=== PATIENT | female | born 1995 | race Caucasian/White ===

== ENCOUNTER 2019-11-18 12:11 | Emergency (ER) | payer OTHER ==
[2019-11-18 12:52] LABS: RAPID STREP SCREEN POSITIVE (Negative)
[2019-11-18] MEDS ORDERED: DEXAMETHASONE 10 MG/ML VIAL PO STA (14:07)
[2019-11-18] MEDS ORDERED: CHERRY SYRUP 10 ML UDC PO ONE (14:07)
--- NOTE | 2019-11-18 14:13 | ED Physician Documentation ---
History of Present Illness - Stated complaint Stated Complaint: SORE THROAT, BODY ACHES - Chief complaint Chief Complaint: Heent - History obtained from History obtained from: Patient - History of Present Illness Timing: How many days ago (2) - Additonal information Additional information: 24-year-old female works at the [employer] [place], states sore throat for the past 2 days including subjective fevers. No nausea or vomiting. Worse with swallowing and better with rest. Patient denies any possibility of . She is not breast-feeding. No cough. Minimal congestion. No abdominal pain. Review of Systems Throat: reports: Sore throat Respiratory: denies: Cough GI: denies: Vomiting, Diarrhea : denies: Now EGA Skin: denies: Rash Musculoskeletal: denies: Neck pain, Back pain Neurologic: denies: Headache PD PAST MEDICAL HISTORY - Past Medical History Past Medical History: No - Past Surgical History Past Surgical History: No - Present Medications Home Medications: Ambulatory Orders Medication Instructions Recorded Confirmed Ibuprofen [Motrin] 800 mg PO Q8H PRN #30 tablet 11/18/19 Ondansetron Odt [Zofran] 4 mg TL Q6H PRN #10 tablet 11/18/19 Penicillin V Potassium 500 mg PO Q6HR #40 tablet 11/18/19 - Allergies Allergies/Adverse Reactions: Allergies Allergy/AdvReac Type Severity Reaction Status Date / Time No Known Drug Allergies Allergy Verified 11/18/19 12:22 - Living Situation Living Situation: reports: With family Living Arrangement: reports: At home - Social History Does the pt smoke?: No Does the pt drink ETOH?: No Does the pt have substance abuse?: No PD ED PE NORMAL - Vitals Vital signs reviewed: Yes - General General: Alert and oriented X 3, No acute distress, Well developed/nourished - HEENT HEENT: Ears normal, Moist mucous membranes, Other (Posterior oropharyngeal erythema with tonsillar exudates. Uvula midline. Normal phonation. No trismus.) - Neck Neck: Supple, no meningeal sign, No adenopathy - Cardiac Cardiac: RRR, Strong equal pulses - Respiratory Respiratory: No respiratory distress, Clear bilaterally - Abdomen Abdomen: Soft, Non tender, Non distended - Derm Derm: Warm and dry, No rash - Neuro Neuro: Alert and oriented X 3 - Psych Psych: Normal mood, Normal affect Results - Vitals Vitals: Vital Signs - 24 hr 11/18/19 12:20 Temperature 37 C Heart Rate 122 H Respiratory 18 Rate Blood Pressure 121/78 O2 Saturation 100 Oxygen O2 Source Room air - Labs Labs: Laboratory Tests 11/18/19 12:20 Group A Strep Rapid POSITIVE H PD MEDICAL DECISION MAKING - ED course Complexity details: reviewed results, considered differential, d/w patient ED course: Patient with strep pharyngitis. No evidence of peritonsillar or retropharyngeal abscess. Given dexamethasone here. Will place on antibiotics and pain medication for home. Patient counseled regarding signs and symptoms for which I believe and urgent re-evaluation would be necessary. Patient with good understanding of and agreement to plan and is comfortable going home at this time This document was made in part using voice recognition software. While efforts are made to proofread this document, sound alike and grammatical errors may occur. Departure - Departure Disposition: 01 Home, Self Care Clinical Impression: Strep pharyngitis Condition: Good Instructions: ED Strep Pharyngitis Conf Follow-Up: Jenaro Garay ARNP [Primary Care Provider] - Within 1 week (if not better ) Prescriptions: Penicillin V Potassium 500 mg PO Q6HR #40 tablet Ibuprofen [Motrin] 800 mg PO Q8H PRN #30 tablet PRN Reason: PAIN &/OR FEVER Ondansetron Odt [Zofran] 4 mg TL Q6H PRN #10 tablet PRN Reason: Nausea / Vomiting Comments: Take all antibiotics until gone. Return if you worsen. This should start to improve in the next 24 to 48 hours. Forms: Activity restrictions
[2019-11-18 14:22] VITALS: BP 128/76
== END 2019-11-18 14:20 | disposition home or self-care (01) ==
LOC: ED 12:11
DX: J02.0 Streptococcal pharyngitis (principal)
CPT/HCPCS: 87430; 99283; 99284; A9270

== ENCOUNTER 2020-10-22 14:02 | Outpatient (CLI) | payer OTHER ==
[2020-10-22 14:13] VITALS: BP 122/76
[2020-10-22 15:05] LABS: BILIRUBIN,URINE NEGATIVE (NEGATIVE); GLUCOSE, URINE (UA) NEGATIVE (NEGATIVE); KETONES,URINE (UA) NEGATIVE (NEGATIVE); LEUKOCYTE ESTERASE, URINE NEGATIVE (NEGATIVE); NITRITE,URINE NEGATIVE (NEGATIVE); OCCULT BLOOD,URINE NEGATIVE (NEGATIVE); PROTEIN,URINE NEGATIVE (NEGATIVE); UROBILINOGEN,URINE 0.2 (NORMAL) E.U./dL (NORMAL)
[2020-10-22 15:12] LABS: CLARITY,URINE CLEAR (CLEAR)
[2020-10-22] MEDS ORDERED: NIFEdipine 10 MG CAPSULE PO PRN (17:49)
--- NOTE | 2020-10-22 17:56 | HISTORY & PHYSICAL EXAMINATION ---
Admit History - Visit Reason Visit Reason: Contractions - : 2 Parity: 1 Care: positive: Other Risk/History: positive: Previous Complications This : positive: Other (IUGR in mid -, resolved) - Mother's Labs GBS: positive: Group B Step Negative - Other Maternal History Other Maternal History: Patient is a 25 yo at 36+6 wga by patient report here with contractions. Patient reports that she was having some back pain and abdominal pain yesterday. She was checked by her primary OB at [place], who noted that her cervix was soft but closed and high. She has had no LOF or VB. Endorses FM. She has been having more uterine irritability and contractions throughout the day. She presented to triage for assessment of labor. Her initial cervical xam at 14:25 was closed , long, soft, and high. She was having contractions every 2-5 minutes that were mild to palpation. She was checked again an hour later and her SVE was unchanged. Contractions are increasing in intensity. Early had been complicated by IUGR on 20 week us that has since resolved with EFW in the 36%ile (per patient report) at one week ago. Planned on scheduled repeat . PMH: none PSH: for distress remote from delivery, possible failure to progress. CT 2018 [place] teeth removal OB HX: No STIs or HSV No abnl pap smear CS x1 SOC HX: Lives in [place] with and daughter FOB active duty [employer] Patient works in childcare No AISHA Meds/Allgy - Home Medications Home Medications: Ambulatory Orders Medication Instructions Recorded Confirmed Ibuprofen [Motrin] 800 mg PO Q8H PRN #30 tablet 11/18/19 Ondansetron Odt [Zofran] 4 mg TL Q6H PRN #10 tablet 11/18/19 Penicillin V Potassium 500 mg PO Q6HR #40 tablet 11/18/19 - Allergies Allergies/Adverse Reactions: Allergies Allergy/AdvReac Type Severity Reaction Status Date / Time No Known Drug Allergies Allergy Verified 11/18/19 12:22 Review of Systems - Other Findings Other Findings: As per HPI, otherwise remaining systems are negative. Physical - Abdominal Exam Vital Signs: Temp Pulse Resp BP Pulse Ox 99.3 F 104 H 18 122/76 99 10/22/20 14:11 10/22/20 14:11 10/22/20 14:11 10/22/20 14:11 10/22/20 14:11 Contraction Frequency (min/apart): irreg Contraction Intensity: positive: Mild to moderate Uterine Resting Tone: positive: Soft - Monitoring Heart Rate Baseline: 135 mod mp 15x15 accels no decels Strip Review: positive: Category I - Vaginal Exam Membranes: positive: Membranes intact Dilation (in cm): FT Effacement (%): long Station: positive: -3 Cervical Position: positive: Posterior - Other Notes Labor Progress Note/Additional Text: GEN: mild distres with contractions HEENT: NCAT CV: mild tachycardia RESP: nl effort ABD: gravid, S&NT/ND PELVIC: NEFG SVE: FT/long/high/posterior/soft EXT: WWP, no LE edema NEURO: A&O, normal coordination PSYCH: appropriate affect Plan for Labor - Plan For Labor Plan for Labor: FALSE LABOR: No change in SVE over 3 hours Patient feels contractions are getting stronger Giving a dose of BMZ 12 mg IM x1 for anticipated late delivery vs early term delivery Nifedipine 10 mg po x1 for comfort FWB: Cat I tracing Reviewed possibility of prolonged latent phase vs prodromal labor pattern No indication for delivery at this time. Will cont to observe patient for possible progression
[2020-10-22] MEDS ORDERED: BETAMETHASONE 30 MG/5 ML VIAL IM ONE (17:57)
[2020-10-22 19:37] LABS: CANDIDA GROUP DNA NEGATIVE (NEGATIVE); CANDIDA KRUSEI DNA NEGATIVE (NEGATIVE); TRICHOMONAS VAGINALIS DNA NEGATIVE (NEGATIVE)
[2020-10-22 22:41] LABS: TRICHOMONAS VAGINALIS DNA NEGATIVE (NEGATIVE)
== END 2020-10-22 18:25 | disposition home or self-care (01) ==
LOC: WFO 14:02 → FBP 14:04 → WFO 18:25
PROVIDERS: ATTEND Obstetrics & Gynecology
DX: O47.03 False labor before 37 completed weeks of gestation, third trimester (principal); O34.219 Maternal care for unspecified type scar from previous cesarean delivery; Z3A.36 36 weeks gestation of pregnancy
CPT/HCPCS: 81003; 87481; 87491; 87591; 87661; 87801; 96372; 99213; A9270; 81001; 87081; 87086